=== PATIENT | female | born 1975 | race Caucasian/White ===

== ENCOUNTER 2023-02-26 13:44 | Emergency (ER) | payer BC, SELFPAY ==
[2023-02-26 14:08] VITALS: BP 98/65; PULSE 98; RESP 20; TEMP 36.6; O2SAT 93; BMI 22.9
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
--- NOTE | 2023-02-26 15:42 | CRLHL7_ITS ---
For Patients: As a result of the Cures Act, medical imaging exams and procedure reports are released immediately into your electronic medical record. You may view this report before your referring provider. If you have questions, please contact your health care provider. INDICATION: Chest pain. TECHNIQUE: Chest/right ribs 3 views. COMPARISON: None. FINDINGS: Cardiovascular and mediastinum: Heart size and vasculature are normal in caliber and appearance. Lungs and pleural spaces: Lungs are clear. No sign of infiltrate or mass. No sign of pleural effusion. No pneumothorax. Bones and soft tissues: No significant findings. IMPRESSION: No acute or significant findings. Dictated by Mando Moss MD @ 02/26/2023 5:19:17 PM (Electronically Signed)
[2023-02-26] MEDS: OXYCODONE 5 MG TABLET PO (15:48)
== END 2023-02-26 16:44 | disposition home or self-care (01) ==
PROVIDERS: Emergency Provider Family Medicine; PCP Family Medicine
DX: R07.89 Other chest pain (principal)
CPT/HCPCS: 71101; 99283; A9270